=== PATIENT | male | born 1985 | race Caucasian/White ===

== ENCOUNTER 2017-08-15 21:52 | Emergency (ER) | payer SELFPAY ==
[2017-08-15 21:57] VITALS: BP 139/82; PULSE 86; RESP 16; TEMP 98.4; O2SAT 100
--- NOTE | 2017-08-15 22:08 | C.PDOC ---
History Of Present Illness 32 y/o male c/o lump in groin x 2 weeks and 2 healed lesions on penis that looked like pimples initially and were non tender, on penis over last 2 weeks, hx of unprotected sex prior to this. no fever, chills, n/v/d. denies dysuria, penile discharge, penile pain, teste pain or swelling. Time Seen by Provider: 08/15/17 22:04 Chief Complaint (Nursing): Male Genitourinary History Per: Patient History/Exam Limitations: no limitations Onset/Duration Of Symptoms: Days (14) Current Symptoms Are (Timing): Still Present Severity: Mild Quality Of Discomfort: Unable To Describe Associated Symptoms: denies: Fever, Chills, Nausea, Vomiting, Urinary Symptoms Past Medical History Reviewed: Historical Data, Nursing Documentation, Vital Signs Vital Signs: Last Vital Signs Temp 98.4 F 08/15/17 21:54 Pulse 86 08/15/17 21:54 Resp 16 08/15/17 21:54 BP 139/82 08/15/17 21:54 Pulse Ox 100 08/17/17 21:05 - Medical History PMH: Kidney Stones - [facility] Procedures CLOSURE SKIN & SUBCUTANEOUS NEC (03/02/14) TETANUS TOXOID ADMINIST (03/02/14) Family History: States: Unknown Family Hx - Social History Hx Alcohol Use: Yes Hx Substance Use: Yes - Immunization History Hx Tetanus Toxoid Vaccination: No Hx Influenza Vaccination: No Hx Pneumococcal Vaccination: No Review Of Systems Constitutional: Negative for: Fever, Chills Gastrointestinal: Negative for: Abdominal Pain Genitourinary: Positive for: Other (healed lesions on penis). Negative for: Dysuria, Frequency, Hematuria, Penile Discharge, Scrotal Pain, Penile Pain Physical Exam - Physical Exam Appears: Non-toxic, No Acute Distress Skin: Warm, Dry Head: Atraumatic, Normacephalic Gastrointestinal/Abdominal: Soft, No Tenderness Male Genital: No Testicular Tenderness, No Testicular Swelling, Inguinal Swelling (left enlarged tender inguinal node), No Scrotal Swelling, No Circumcised, Other (no discharge from urethra, healing lesions approx 4 mm ovoid shape to foreskin and to rim of glans penis, no erythema,swelling or warmth. ) ED Course And Treatment O2 Sat by Pulse Oximetry: 100 Medical Decision Making Medical Decision Making: pt 2 weeks s/p unprotected sex with healing non tender lesions. left groin adenopathy. no penile or teste pain or swelling. no dysuria. concern for syphillis. discussed with Dr Dia. will send urine off for gc and chlamydia , blood for rpr and tx today with one dose of bicillin 2.4 million units im. I will follow up labs with patient in a few days. pt understands and agrees to plan. 08/17/17 discussed with Infection control- pt to go [facility] for further eval ; 859 pm pt called by me, made aware of positive rpr. pt was advised to f/u in [facility] for full STD testing, and further evaluation of syphillis. pt given phone number and address of clinic. pt understands plan. pt advised against unprotected sex. Disposition Counseled Patient/Family Regarding: Studies Performed, Diagnosis, Need For Followup - Disposition Referrals: [facility] at [facility] [Outside] Disposition: HOME/ ROUTINE Disposition Time: 23:00 Condition: GOOD Additional Instructions: Do not have any unprotected sex until you have had full STD testing. Follow up on Thursday for results of tests done in ED today. Tylenol or Motrin for pain in groin if needed. Follow up in medical clinic next week. Instructions: Syphilis (DC), Syphilis Screening Test Forms: [facility] (Turkish), General Discharge Instructions - Clinical Impression Clinical Impression: Inguinal adenopathy
[2017-08-15 22:26] LABS: SQUAMOUS EPITHIAL < 1 /hpf (0-5); URINE BACTERIA RARE (<OCC); URINE BILIRUBIN NEGATIVE (NEGATIVE); URINE CLARITY Clear (Clear); URINE COLOR Yellow (YELLOW); URINE GLUCOSE (UA) NORMAL (Normal); URINE LEUKOCYTE ESTERASE NEG Leu/uL (Negative); URINE PROTEIN NEGATIVE (NEGATIVE); URINE UROBILINOGEN NORMAL mg/dL (0.2-1.0)
[2017-08-15 22:27] LABS: URINE BLOOD 3+ (NEGATIVE)
[2017-08-15] MEDS ORDERED: Penicillin G Benzathine 2.4 Mill Unit/4 ml Syr IM ONE ×3 (22:27→23:00)
[2017-08-16 17:52] LABS: RAPID PLASMA REAGIN REACTIVE (NONREACTIVE)
== END 2017-08-15 23:03 | disposition home or self-care (01) ==
LOC: C.ER 21:52
DX: R59.0 Localized enlarged lymph nodes (principal)
CPT/HCPCS: 81001; 86592; 86780; 87086; 87491; 87591; 96372; 99283; J0561

== ENCOUNTER 2018-03-04 09:16 | Emergency (ER) | payer OTHER ==
[2018-03-04 09:38] VITALS: RESP 18; O2SAT 99
--- NOTE | 2018-03-04 12:01 | C.PDOC ---
History Of Present Illness 33 y/o male presents to ED with c/o groin pain associated with some palpable swelling noted for past few months" . Patient states he was at ED "months ago" and treated for infection with penicillin injection " first noted this problem". Pt admits, pain is localized over groin area, worse with movement. Patient denies fever, chills, abd. pain, N/V/D, dysuria, hematuria, penile pain, penile discharge, testicular pain or swelling, denies any known trauma or injury, or any other complaints at this time. Ambulate to ED for evaluation, not in nay apparent distress. Time Seen by Provider: 03/04/18 09:37 Chief Complaint (Nursing): Abdominal Pain History Per: Patient History/Exam Limitations: no limitations Onset/Duration Of Symptoms: Days Current Symptoms Are (Timing): Still Present Past Medical History Reviewed: Historical Data, Nursing Documentation, Vital Signs Vital Signs: Last Vital Signs Temp 99 F 03/04/18 09:34 Pulse 64 03/04/18 09:34 Resp 18 03/04/18 09:34 BP 124/78 03/04/18 09:34 Pulse Ox 99 03/04/18 09:34 - Medical History PMH: Kidney Stones, Sexually Transmitted Disease ("Can't remember") Surgical History: No Surg Hx - [facility] Procedures CLOSURE SKIN & SUBCUTANEOUS NEC (03/02/14) TETANUS TOXOID ADMINIST (03/02/14) Family History: States: No Known Family Hx - Social History Hx Alcohol Use: Yes Hx Substance Use: Yes (daily) - Immunization History Hx Tetanus Toxoid Vaccination: No Hx Influenza Vaccination: No Hx Pneumococcal Vaccination: No Review Of Systems Constitutional: Negative for: Fever, Chills Gastrointestinal: Negative for: Nausea, Vomiting Genitourinary: Positive for: Other (groin pain). Negative for: Dysuria, Hematuria, Penile Discharge, Penile Pain Musculoskeletal: Negative for: Back Pain Skin: Negative for: Rash Physical Exam - Physical Exam Appears: Well, Non-toxic, No Acute Distress Skin: Warm, Dry, No Rash Head: Normacephalic Eye(s): bilateral: PERRL Oral Mucosa: Moist Throat: No Erythema, No Drooling Neck: Normal ROM, Trachea Midline, Supple Cardiovascular: Rhythm Regular, No Murmur, No JVD Respiratory: No Accessory Muscle Use, No Rales, No Rhonchi, No Stridor, No Wheezing Gastrointestinal/Abdominal: Soft, No Tenderness, No Distention, No Guarding, No Rebound, Other ((+) mild B/L groin tenderness along ligament. No edema, no erythema, no palpable deformity.) Back: No CVA Tenderness Male Genital: No Inguinal Tenderness, No Inguinal Swelling Extremity: Normal ROM, No Deformity, No Swelling Neurological/Psych: Oriented x3, Normal Speech, Normal Cognition ED Course And Treatment O2 Sat by Pulse Oximetry: 99 (RA) Pulse Ox Interpretation: Normal Progress Note: On re-eval, pt is afebrile, hemodynamicaly stable. Non-toxic. ENT: no acute findings. neck: Supple, (-) meningeal sign. Abd: benign, (-) guarding, (-) rebound. back: (-) CVA tenderness. Neurological intact. UA review (-) acute abnormalities. Pt has clinical findings c/w groin pain. Pt advised. ref. to F/u with PMD, Urology in 2-3 days for re-eavl. return if any new changes. Disposition Counseled Patient/Family Regarding: Studies Performed, Diagnosis, Need For Followup, Rx Given - Disposition Referrals: Aldo Redd MD [Staff Provider] - [facility] at [facility] [Outside] Disposition: HOME/ ROUTINE Disposition Time: 12:23 Condition: STABLE Additional Instructions: Light duty, avoid strenuous activity, running Take medication as prescribed Follow up with PMD, Urology in2 -3 days for re-evaluation as need return to ED if any worsening or new changes. Prescriptions: Ibuprofen [Motrin Tab] 600 mg PO BID #10 tab Instructions: Groin Strain Forms: [facility] (Burkinan) - Clinical Impression Clinical Impression: Groin pain - PA / [employer]ING [employer] / Resident Statement MD/DO has reviewed & agrees with the documentation as recorded. - Scribe Statement The provider has reviewed the documentation as recorded by the Oliver Estrada All medical record entries made by the Darrellibluisana were at my direction and personally dictated by me. I have reviewed the chart and agree that the record accurately reflects my personal performance of the history, physical exam, medical decision making, and the department course for this patient. I have also personally directed, reviewed, and agree with the discharge instructions and disposition.
[2018-03-04 12:40] LABS: SQUAMOUS EPITHIAL < 1 /hpf (0-5); URINE BACTERIA RARE (<OCC); URINE BILIRUBIN NEGATIVE (NEGATIVE); URINE BLOOD NEGATIVE (NEGATIVE); URINE CLARITY Clear (Clear); URINE COLOR Yellow (YELLOW); URINE GLUCOSE (UA) NORMAL (Normal); URINE LEUKOCYTE ESTERASE NEG Leu/uL (Negative); URINE PROTEIN NEGATIVE (NEGATIVE); URINE UROBILINOGEN NORMAL mg/dL (0.2-1.0)
[2018-03-04 13:13] VITALS: BP 126/68; PULSE 62; TEMP 98.5
== END 2018-03-04 13:15 | disposition home or self-care (01) ==
LOC: C.ER 09:16
DX: R10.30 Lower abdominal pain, unspecified (principal)